=== PATIENT | female | born 2000 | race Caucasian/White ===

== ENCOUNTER 2024-09-08 16:37 | Observation (INO) | payer SELFPAY ==
[2024-09-08] VITALS (27 sets, daily range): BP systolic 103–127; BP diastolic 55–75; PULSE 53–136; BMI 33.3
--- NOTE | 2024-09-08 08:47 | US_ITS ---
WS: [id number] ULTRASOUND OB FOCUSED HISTORY: bleeding COMPARISON: None available. Single intrauterine gestation is present in breech presentation. Cervix is not completely identified. Only a small portion of the cervix is identified. Cervix is being obscured by the fetus deep within the pelvis. heart rate at 145 BPM. Several scattered pockets of amniotic fluid are identified. Largest single pocket is 4.0 cm in depth. Placenta is posterior and fundal with no abruption or previa. Placenta is grade 2. US/US OB limited [id number] IMPRESSION: 1. Incomplete evaluation of the cervix. Cervix is obscured by body parts . If further evaluation of the cervix is necessary transvaginal ultrasound shou ld be obtained. 2. Normal cardiac activity. 3. Breech. 4. Normal amniotic fluid. 5. Posterior grade 2 placenta with no abruption.
[2024-09-08 09:05] LABS: Basophils % 0.2 %; Eosinophils % 0.3 %; Hematocrit 37.7 % (36-47); Lymphocytes # 1.6 10^3/uL (0.8-4.8); Lymphocytes % 13.8 %; Mean Corpuscular HGB Conc 31.8 g/dL (30-55); Mean Corpuscular Hemoglobin 26.4 pg (27-33); Mean Platelet Volume 10.9 fL (7.4-10.4); Monocytes # 0.6 10^3/uL (0.2-0.9); Neutrophils # 9.18 10^3/uL (1.8-7.7); Neutrophils % 80.4 %; Nucleated Red Blood Cells % 0 %; Platelet Count 197 10^3/cmm (157-399); Red Blood Count 4.54 10^6/uL (3.85-5.65); Red Cell Distribution Width 14.1 % (12.1-15.1)
[2024-09-08] MEDS: dextrose 5%-lactated ringers 1,000 ML 125 ML IV (11:17)
--- NOTE | 2024-09-08 12:28 | PM.HP ---
Providers/Chief Complaint Primary Care Provider: Breana Chavis MD Chief Complaint: bleeding History of Present Illness Mandy Malin is a 24 year old female at 36 weeks 5 days gestation with an LUIS of 10/01/2022 who presented to labor and delivery this morning complaining of vaginal bleeding. She denies any sexual intercourse for the past 5 days. She states that she woke up to go to the restroom and had a gush of blood down her legs. She called for her spouse to take her to the hospital and she continued to bleed a bit while she was placing a maxi pad on. When she arrived to labor and delivery the maxi pad was saturated. The patient denied any regular contractions but her spouse stated that last evening she was feeling some regular contractions. She has had good movement and no loss of fluid that she knows of. The bleeding has been bright red. She does feel some occasional cramping in her back. Review of Systems Narrative: Positive vaginal bleeding, positive movement, negative loss of fluid, negative for regular contractions Medications/Allergies Home Medications ?Medication ?Instructions ?Recorded ?Confirmed ?Last Taken ?Type prenat.vits,danilo,mwb-lelk-lalrs 1 tab PO DAILY 09/08/24 09/08/24 Unknown History Allergies Allergy/AdvReac Type Severity Reaction Status Date / Time No Known Allergies Allergy Verified 09/08/24 11:04 Additional Medication Information The patient was a late OB transfer from out of [facility]. [facility] Acute Female Reproductive History: : 2 Para: 1 Vitals/I&O/Wt Last Vital Signs Pulse 74 09/08/24 12:22 BP 109/67 09/08/24 12:22 Weight last 48 hrs Weight 102.512 kg Physical Exam Narrative: Alert and oriented, sitting up in bed, heart regular rate and rhythm, lungs clear to auscultation bilaterally, abdomen is gravid, soft and nontender, SVE 1 thick and high with moderate bright red blood on the chucks. Data 09/08/24 08:55 Other Labs: labs: Blood type B+, antibody negative, hepatitis B nonreactive, hepatitis C nonreactive, HIV nonreactive, rubella immune, GC chlamydia negative, RPR nonreactive, UDS negative, she passed her glucose tolerance test A&P Assessment and plan (1) Vaginal bleeding during , antepartum: The patient had most of her bleeding upon initial presentation. Since then it has tapered off significantly. Nursing is going to be weighing the chucks so we can get an idea of how much blood loss she has had. Ultrasound was performed with no indication of abruption and the placenta is fundal in location. heart tones have been reassuring. She has been typed and crossed for 2 units of blood on hold. She has been consented for possible emergent section. She has 2 lines of IV access in place and is on maintenance fluids. We will keep her on ice chips and sips for the time being. Continue to monitor. If she has any more significant vaginal bleeding we will likely proceed with section. (2) Breech presentation of fetus: Patient is aware and has been consented for section. (3) with 36 completed weeks gestation: PDMP PDMP Reviewed: Not Reviewed Attestations Medical Necessity Statement*: Significant vaginal bleeding and viable Coding Level of Care Code Acute Code for Chg Fwd Diagnoses Vaginal bleeding during , antepartum O46.90 Breech presentation of fetus O32.1XX0 with 36 completed weeks gestation Z3A.36
[2024-09-08] MEDS: acetaminophen 325 mg Tablet 650 MG PO (20:27)
[2024-09-09] MEDS: dextrose 5%-lactated ringers 1,000 ML 125 ML IV (00:44)
[2024-09-09 04:35] VITALS: BP 117/66; PULSE 67
[2024-09-09 04:49] VITALS: BP 112/64; PULSE 77
--- NOTE | 2024-09-09 08:43 | PC.NURSE ---
IVs flushed. pt refusing continuous fluids at this time.
[2024-09-09 09:28] VITALS: BP 118/64; PULSE 78; RESP 15; TEMP 36.1
--- NOTE | 2024-09-09 12:20 | PM.DCS ---
Discharge Providers Date of Admission: 09/08/24 16:37 Date of Discharge: September 09, 2024 Attending Provider at Admission: Breana Chavis MD Attending Provider at Discharge: Breana Chavis MD Primary Care Provider: Breana Chavis MD Diagnoses at Discharge Discharge Diagnosis (1) Vaginal bleeding during , antepartum: Details from hospital stay: Resolved spontaneously. I suspect it was secondary to minimal cervical dilation the cervix was 1 cm and thick. Patient should have nothing per vagina until further notice. She should report immediately back to the hospital for any bright red blood. If she were to have any more significant vaginal bleeding we would likely proceed with primary section if the is still in breech presentation. Status: Acute (2) Breech presentation of fetus: Details from hospital stay: Patient is being scheduled for primary section likely September 24 pending authorization from anesthesia. Obviously if the should turn Vertex then patient may proceed with vaginal delivery. Status: Acute (3) with 36 completed weeks gestation: Status: Acute Reason for Visit Reason for Visit: bleeding Hospital Course Hospital Course This is a 24-year-old G2, P1 at 36 weeks 6 days gestation who presented to labor and delivery yesterday morning complaining of vaginal bleeding. Ultrasound did not reveal any obvious source for the bleeding and the placenta was located fundally. heart tones have been reassuring. The patient was admitted for observation and kept overnight. The bleeding resolved spontaneously and by weight came out to be approximately 130 mL since admission, the majority occurring before noon. She had a scant amount of bright red blood overnight and a scant amount of dark red blood this morning. She has been up ambulating and reports good movement with rare contractions. The patient is being discharged home in good condition on pelvic rest. Physical Exam Narrative: Alert and oriented, sitting up in bed eating lunch, heart regular rate and rhythm, lungs clear to auscultation bilaterally, abdomen is soft, gravid, nontender, extremities have 1+ edema but no calf tenderness Discharge Data Studies Completed and Pending Completed Studies During Hospitalization Category Date Time Status US OB limited [id number] Stat Ultrasound 09/08/24 08:47 Completed Pending at discharge Category Date Time Status Leukocyte Reduced RBC Routine Lab 09/08/24 08:55 Results Type and Screen Stat Lab 09/08/24 08:55 Results Radiology Impressions Obstetrics Ultrasound 09/08/24 08:47 IMPRESSION: 1. Incomplete evaluation of the cervix. Cervix is obscured by body parts. If further evaluation of the cervix is necessary transvaginal ultrasound should be obtained. 2. Normal cardiac activity. 3. Breech. 4. Normal amniotic fluid. 5. Posterior grade 2 placenta with no abruption. Laboratory Results WBC 11.40 10^3/uL (3.29-11.43) 09/08/24 08:55 RBC 4.54 10^6/uL (3.85-5.65) 09/08/24 08:55 Hgb 12.00 g/dL (11.27-16.99) 09/08/24 08:55 Hct 37.7 % (36-47) 09/08/24 08:55 MCV 83.0 fl (85-98) L 09/08/24 08:55 MCH 26.4 pg (27-33) L 09/08/24 08:55 MCHC 31.8 g/dL (30-55) 09/08/24 08:55 RDW 14.1 % (12.1-15.1) 09/08/24 08:55 Plt Count 197 10^3/cmm (157-399) 09/08/24 08:55 MPV 10.9 fL (7.4-10.4) H 09/08/24 08:55 Neut % (Auto) 80.4 % 09/08/24 08:55 Lymph % (Auto) 13.8 % 09/08/24 08:55 [place] % (Auto) 5.0 % 09/08/24 08:55 Eos % (Auto) 0.3 % 09/08/24 08:55 Baso % (Auto) 0.2 % 09/08/24 08:55 Neut # (Auto) 9.18 10^3/uL (1.8-7.7) H 09/08/24 08:55 Lymph # (Auto) 1.6 10^3/uL (0.8-4.8) 09/08/24 08:55 [place] # (Auto) 0.6 10^3/uL (0.2-0.9) 09/08/24 08:55 Eos # (Auto) 0.0 10^3/uL (0.0-0.8) 09/08/24 08:55 Baso # (Auto) 0.0 10^3/uL (0.0-0.1) 09/08/24 08:55 Nucleated RBC % (auto) 0 % 09/08/24 08:55 Nucleated RBCs # 0.0 /100WBC 09/08/24 08:55 Blood Type B Positive 09/08/24 08:55 Rho(D) Type Rh positive 09/08/24 08:55 Antibody Screen Negative 09/08/24 08:55 Crossmatch See Detail 09/08/24 08:55 Vitals Last Vital Signs Temp 97.0 F L 09/09/24 09:28 Pulse 78 09/09/24 09:28 Resp 15 09/09/24 09:28 BP 118/64 09/09/24 09:28 Discharge Plan Discharge Patient Disposition: Home Condition: Stable Prescriptions: Continued prenat.vits,danilo,[id number] Tablet 1 tab PO DAILY Discharge Orders: Discharge Order (Routine); Ordered 09/09/24 Ordered By: Breana Chavis Referrals: Breana Chavis MD [Primary Care Provider] - 1 week Discharge Diet: Usual diet Discharge Activity: Limit activity as instructed Patient Instructions: Opioid Safety Activity Restrictions/Additional Instructions: Nothing per vagina until further notice. Discharge Attestations Time Spent in Discharge Care*: less than 30 min Quality Metrics Clinical Quality Measures [ No reported AMI, CVA or VTE this stay] Coding Level of Care Code Acute Code for Chg Fwd Diagnoses Vaginal bleeding during , antepartum O46.90 Breech presentation of fetus O32.1XX0 with 36 completed weeks gestation Z3A.36
[2024-09-09 13:26] VITALS: BP 114/61; PULSE 78; TEMP 36.2
[2024-09-09 13:28] VITALS: BP 114/61; PULSE 78; RESP 16; TEMP 36.2; O2SAT 99
== END 2024-09-09 13:28 | disposition home or self-care (01) ==
PROVIDERS: Admitting Provider Family Medicine; PCP Family Medicine; Visit Provider Family Medicine
DX: O46.93 Antepartum hemorrhage, unspecified, third trimester (principal); O32.1XX0 Maternal care for breech presentation, not applicable or unspecified; Z3A.36 36 weeks gestation of pregnancy
CPT/HCPCS: 36415; 59025; 76815; 85025; 86850; 86900; 86920; 99211; G0378; J7121

== ENCOUNTER 2024-09-12 19:51 | Outpatient (CLI) | payer SELFPAY ==
[2024-09-12 20:01] VITALS: BMI 33.6
[2024-09-12 20:09] VITALS: BP 112/64; PULSE 91
[2024-09-12 20:12] VITALS: RESP 16; TEMP 36.5
[2024-09-12 20:25] VITALS: BP 104/58; PULSE 79
[2024-09-12 20:40] VITALS: BP 108/65; PULSE 88
[2024-09-12 21:03] VITALS: BP 108/65; PULSE 88; RESP 16; O2SAT 98
== END 2024-09-12 21:06 | disposition home or self-care (01) ==
LOC: OPOB 19:54 → OBGYN 19:56
PROVIDERS: PCP Family Medicine; Visit Provider Family Medicine
DX: O20.9 Hemorrhage in early pregnancy, unspecified (principal); Z3A.00 Weeks of gestation of pregnancy not specified
CPT/HCPCS: 59025; 99211

== ENCOUNTER 2024-09-24 05:10 | Inpatient (IN) | payer SELFPAY ==
--- NOTE | 2024-09-18 10:32 | ANES.PREANE2 ---
Pre-Anesthetic Assessment Height/Weight: Height 5 ft 9 in Preop Diagnosis: Planned Operation Date: 09/24/24 07:20 Proposed Procedures p Section(Not Applicable) - Breana Chavis MD Was Beta Arleth taken within 24 hours: N/A Was Clonidine taken within 24 hours: N/A Social No alcohol and No tobacco Exam alert, oriented x 3, clear to auscultation bilaterally and regular rate & rhythm Airway Submandibular: within normal limits Cervical ROM: within normal limits Mallampati: Class II Dentition: full Anesthetic Plan ASA status: 2 Anesthesia: General Other: No prior issues with anesthesia G2, P1 with planned Plan for n.p.o. at midnight prior to procedure Will obtain labs morning of procedure Denies any cardiac or pulmonary issues Plan for routine with spinal Medications/Allergies Home Medications ?Medication ?Instructions ?Recorded ?Confirmed ?Last Taken ?Type prenat.vits,danilo,gdc-cets-zkpry 1 tab PO DAILY 09/08/24 09/12/24 09/12/24 History Allergies Allergy/AdvReac Type Severity Reaction Status Date / Time No Known Allergies Allergy Verified 09/12/24 20:02 [facility] Anesthesia Female Reproductive History Para: 1 Data Anesthesia Cardiac Studies: No Data to Display
[2024-09-24] VITALS (80 sets, daily range): BP systolic 96–121; BP diastolic 46–72; PULSE 52–91; RESP 15–18; TEMP 35.9–36.7; O2SAT 97–100; BMI 34.2
--- OUTSIDE RECORDS SUMMARY | 2024-09-24 05:13 | XMS_ITS | Data Portability ---
Author Organization [facility] Thai Le [facility] Osvaldo, JUAN [facility] Address [address] [place] [address] Assessment No assessment recorded. Plan of Treatment Reminders Order Date Submit Date Provider Last Modified By Organization Details Last Modified Time Details Appointments None recorded. Lab streptococc us group B, culture, unspecified specimen 2024 025 [place] D[place] [facility], [address] [place] [address] [address] [place], [address], 06:26:31 Referral None recorded. Procedures None recorded. Surgeries None recorded. Imaging None recorded. Medication Orders None recorded. Patient TargetsNo targets recorded. Patient InstructionsNo instructions recorded. Reason for Referral None Reported. Results Created Date Observation Date Name Description Value Unit Range Abnormal Flag Note LastModifiedBy Organization Detail LastModifiedTime 09/03/1909/06/2024 STREP TOCOC CUS, GROUP B CULTU RE streptococcu s, group B culture SEE NOTE STREP TOCOC CUS, GROUP B CULTU RE Micro Numbe r: [id number] Test Statu s: Final Speci men Sourc e: Vagin al/an orect al Speci men Quali ty: Adequ ate Resul t: No group B Strep tococ cus isola lior Note per CDC guide lines optim al recov sonny is achie juliana by swabb ing both the lower vagin a and rectu m (thro ugh the anal sphin cter) . Not Available [employer] [facility] [address], [place], [address], 09/06/2024 06:26:30 09/08/1909/08/2024 US, obste tric, 2nd trime ster No observ ation record ed. [email or web address] [facility] Neurology [address] [place], [address], 09/08/2024 11:04:13 09/08/19 25 09/08/2024 US, obste tric No observ ation record ed. [email or web address] [facility] [address] [place], [address], 09/08/2024 11:03:40 09/09/1909/08/2024 US, obste tric, limit ed No observ ation record ed. [email or web address] Not Available 09/11 16:31:55 Result Notes None recorded. Problems Name Problem SNOMED Code Status Onset Date Resolution Date Notes Provider Name and Address Organization Details Recorded Time 04742538 Active [facility] JOSE ANTONIO NGUYEN [facility] 15:25:30 Problem Notes None recorded. Procedures Surgical History None recorded. Imaging Results Imaging Date Name Status LastModified by Organiz ation Details LastModified Time 09/08/2024 US, obstetric, 2nd trimester completed [email or web address] [place] [address] Neurology [address] [place], [address], 09/08/2024 11:04:13 09/08/2024 US, obstetric completed [email or web address] [place] [address] [address] [place], [address], 09/08/2024 11:03:40 09/08/2024 US, obstetric, limited completed [email or web address] Information not available 09/11/2024 16:31:55 Procedure Notes None recorded. Medical Equipment None Reported. Allergies No known drug allergies Medications Not known to be on any medication Vitals Date Recorded Body weight Body mass index (BMI) Body height Body temperature Oxygen saturation Oxygen saturation in Arterial blood by Pulse oximetry Heart rate Systolic blood pressure Diastolic blood pressure Provider Name and Address Organization Details Last Updated DateTime 5 019524. 51 g 33.8 kg/m2 172.72 cm 97.1 [degF] 99 % 99 % 71 /min 114 mm[Hg] 70 mm[Hg] JOSE ANTONIO NGUYEN [facility] 15:24:01 Date Recorded Body height Body mass index (BMI) Body weight Body temperature Oxygen saturation Oxygen saturation in Arterial blood by Pulse oximetry Heart rate Systolic blood pressure Diastolic blood pressure Provider Name and Address Organization Details Last Updated DateTime 172.72 cm 34.2 kg/m2 040864. 28 g 98.2 [degF] 99 % 99 % 93 /min 100 mm[Hg] 70 mm[Hg] FARHAN REDD BELTRAN [facility] 10:59:11 Date Recorded Body height Body mass index (BMI) Body weight Body temperature Oxygen saturation Oxygen saturation in Arterial blood by Pulse oximetry Heart rate Systolic blood pressure Diastolic blood pressure Provider Name and Address Organization Details Last Updated DateTime 172.72 cm 34.5 kg/m2 469009. 47 g 98.6 [degF] 99 % 99 % 68 /min 115 mm[Hg] 80 mm[Hg] FARHAN REDD DEVIN [facility] 10:26:39 Social History Question Answer Notes LastModified by Organizat ion Details LastModified Time Tobacco Smoking Status Never Smoker JOSE ANTONIO NGUYEN [facility] 08/20/2024 15:24:58 What Is Your Level Of Alcohol Consumption? None Information not available 08/20/2024 Do You Use Any Illicit Or Recreational Drugs? No [email or web address] Information not available 08/20/2024 Sex: Unknown Functional Status None recorded. Mental Status None recorded. Family History Relationship Description Onset Age of this Age Resolved Age Notes LastModified by Organization Details LastModified Time Father No current problems or disability [email or web address] Not available 08/20 15:24:52 Mother No current problems or disability [email or web address] Not available 08/20 15:24:52 Medical History Condition Response Coronary Artery Disease N Gout N Other N Blood Diseases N Kidney Stones N Hyperthyroidism N Blood Transfusion N Breast Cancer N Depression N Hypothyroidism N Lung Disease N COPD N Defects or Inherited Disease N Developmental or Behavioral Disorders N Breast Problem N Difficulty Swallowing N Anesthesia Complications N Meniere's disease N Anxiety Disorder N Muscle, Joint, or Bone Problems N Vision or Eye Problems N Arthritis N Polyps N Infertility N Cancer N Varicosities N Stroke N Endometriosis N Bladder or Kidney Problems N High Cholesterol N Liver Disease N Fibromyalgia N Headaches N Kidney Disease N Allergies/Hayfever N Heart Problems N Ear or Hearing Problems N Hospitalizations N Thyroid Problems N GI Problems N ADD/ADHD N Skin Problems N Eating Disorder N Anemia N Constipation N Mental Illness N Ovarian Cancer N Diabetes N Bedwetting N Seizures/Epilepsy N Tuberculosis N Eczema N Diverticulitis N Abuse/Domestic Violence N Asthma N Reflux/GERD N Hepatitis N Heart Disease N Pulmonary Embolism N Pre-Eclampsia N Hypertension N Chronic Ear Infections N Osteoporosis N Chicken Pox N Autism Spectrum Disorder (ASD) N Thrombophilias N Gynecological History Statement/Question Response Abnormal Pap N Date of Last Pap Smear Obstetrics History GPAL:G 2 P 1 0 0 1 Type Value Full Term 1 Living 1 Total 2 Past Encounters Encounter ID Performer Location Encounter Start Date Encounter Closed Date Diagnosis/Indication Diagnosis SNOMED-CT Code Diagnosis ICD10 Code Diagnosis Note [id number] Breana Chavis MD [facility] ([facility]) [address] [place] [phone] 5 08/20/2024 15:17:01 08/20/2024 16:05:42 Gestation period, 34 weeks 88562107 Z3A.34 Normal pre gnancy in multigravida 1845359379 91177 Z34.83 Patient ne w to provider [id number] 56961 Z76.89 pt moved her from out of [facility], Signed a records request form to obtain her records. 08/20/2024 [id number] Breana Chavis MD [facility] ([facility]) [address] [place] [phone] 5 09/03/2024 10:45:52 09/03/2024 11:42:43 Gestation period, 36 weeks 30415399 Z3A.36 Normal pre gnancy in multigravida 4871284598 06993 Z34.83 [id number] Breana Chavis MD [facility] ([facility]) [address] [place] [address] [phone] 5 09/18/2024 10:16:35 09/18/2024 12:01:17 Gestation period, 38 weeks 57476683 Z3A.38 Normal pre gnancy in multigravida 9171464844 36774 Z34.83 Breech presentation 6096 002 O32.1XX9 c/s preop instructio ns given to pt Health Concerns Section Related Observation LastModified by Organization Detai ls LastModified Time None Recorded Concern Status LastModified by Organization Details LastModified Time None Recorded Advance Directives Directive None Recorded Payers Encounter Date Sequence Insurance Name Policy Number Policy Melton Covered Member ID Melton Member ID Guarantor Name 08/20/2024 1 *SELF PAY* Arvin Malni 09/03/2024 1 *SELF PAY* Arvin Malin 09/18/2024 1 *SELF PAY* Arvin Malin Notes Date Note Type Note Provider Name and Address Organization Details Recorded Time 08/20/2024 text/html ob routineRep orted bypatient.Associated Symptoms:no abdominal pain; no cramping; no contractions; normal movement; no bleeding; no dysuria; no nausea; no emesis; no constipation; no headache; no dizziness No hx of GDM, pre-eclampsia per ptunk blood type, does not remember getting the rhogam last [email or web address] week ultrasound was WNL per ptadvised next visit will be her GBS test. Breana Chavis MD [address] [place] [address], [phone], [facility] 08/20/2024 15:55:49 09/03/2024 text/html ob routineRep orted bypatient.Associated Symptoms:normal movement; no bleeding; no dysuria; no nausea; no emesis; no constipation; no edema; no dizziness;abdominal pain;contractions;hea dache Breana Chavis MD [address] [place] [address], [phone], [facility] 09/03/2024 11:18:48 09/18/2024 text/html ob routineRep orted bypatient.Associated Symptoms:normal movement; no bleeding; no dysuria; no nausea; no emesis; no edema; no headache; no dizziness;abdominal pain;cramping;contrac tions Breana Chavis MD [address] [place], [address], [facility], [facility] 09/18/2024 10:55:23 OBGyn Episode Ob Episode Information Episode Created Date Number of Fetuses Patient Bloodtype Patient rh Status Prepregnancy Weight lbs Domestic Partner Domestic Partner Phone Father Name High School Librarian Status 08/20/19 25 1 CLOSED Fetus Data First Name Last Name Admitted to NICU Weight (g) Sex Living Outcome Pediatric Complications Fetus ID Race Codes Race Delivery Type 3600.15 9704 M [id number] VAGINAL Andi Calculation Initial Andi Date Initial Exam Date Initial Exam Provider Initial Ultrasound Date Last Menstrual Period Date Ultra Sound Weeks Gestation 0 Eighteen To Twenty Week Andi Update Ultra Sound Date Fundal Height At Umbil Quickening Date Ultra Sound Latest Weeks Gestation Final Andi Confirmed By Final Andi Confirmed Date Final Andi Date Ultra Sound Latest Days Gestation 0 0 Menstrual History Last Menstrual Date Menses Monthly On Bcp Conception Prior Menses Frequency Hcg Plus Date Menarche Onset Age Delivery Information Delivery Date Delivery Type Labor Anesthesia Weeks Gestation Incision Type Labor Labor Length Hrs Delivered By Post Complications Tubal Sterilization Discharge Date Comments 3 Regional-Ep idural Out of state, no complicat ions Discharge Information Feeding Method Contraceptive Method Maternal HG B and HCT Levels Ob Episode Information Episode Created Date Number of Fetuses Patient Bloodtype Patient rh Status Prepregnancy Weight lbs Domestic Partner Domestic Partner Phone Father Name High School Librarian Status 08/20/19 25 1 OPEN Fetus Data First Name Last Name Admitted to NICU Weight (g) Sex Living Outcome Pediatric Complications Fetus ID Race Codes Race Delivery Type [id number] Andi Calculation Initial Andi Date Initial Exam Date Initial Exam Provider Initial Ultrasound Date Last Menstrual Period Date Ultra Sound Weeks Gestation 10/01/2024 08/20/2024 0 Eighteen To Twenty Week Andi Update Ultra Sound Date Fundal Height At Umbil Quickening Date Ultra Sound Latest Weeks Gestation Final Andi Confirmed By Final Andi Confirmed Date Final Andi Date Ultra Sound Latest Days Gestation 0 0 Pre-maxim Flowsheet Flowsheet Date 08/20/2024 Woodall Score Blood Edema Fundus Height Fundus Units Glucose Ketones Leukocytes Nitrite Labor Signs Protein Cervic Dilation Cervic Effacement Cervic Station 35 cm none trace Negative trace Type Weight in lbs Pre/Post Dialysis Refused With clothes 222.2926067699 BP Diastolic BP Location Tested BP Systolic BP Type 70 L arm 114 sitting Fetus Heart Rate Present A 140 Fetus Movement A Yes Comments kick counts reviewed. Baby g Chavo berry. No bc after baby is born.GBS next visit. had Tdap, needs RSV. Flowsheet Date 09/03/2024 Woodall Score Blood Edema Fundus Height Fundus Units Glucose Ketones Leukocytes Nitrite Labor Signs Protein Cervic Dilation Cervic Effacement Cervic Station 36 cm none 2+ trace Type Weight in lbs Pre/Post Dialysis Refused Weight 225.880667031564 BP Diastolic BP Location Tested BP Systolic BP Type 70 100 Fetus Heart Rate Present A 145 Fetus Movement A Yes Comments GBS and cytotec forms signed today. Flowsheet Date 09/18/2024 Woodall Score Blood Edema Fundus Height Fundus Units Glucose Ketones Leukocytes Nitrite Labor Signs Protein Cervic Dilation Cervic Effacement Cervic Station 36 cm none trace trace Type Weight in lbs Pre/Post Dialysis Refused Weight 227.8277466893 BP Diastolic BP Location Tested BP Systolic BP Type 80 115 Fetus Heart Rate Present A 150 Fetus Movement A Yes Comments bleeding episode was in L&D overnight. breech. scheduled for c/s Menstrual History Last Menstrual Date Menses Monthly On Bcp Conception Prior Menses Frequency Hcg Plus Date Menarche Onset Age Genetic Screening And Infection History Question Response Note Patient's Age Will Be 35 Yea rs Or Older At Estimated Date of Delivery false Thalassemia (Wolof, Chinese, Mediterranean, Or Background): MCV < 80 false Neural Tube Defect (Meningomyelocele, Spina Bifi da, Or Anencephaly) false Congenital Heart Defect false Down Syndrome false Jayden-Sachs (eg, Buddhist, Cajun, Urdu-Cotopaxi) f alse Fabiana Disease false Sickle Cell Disease Or Trait () false Hemophilia Or Other Blood Disorders false Muscular Dystrophy false Cystic Fibrosis false Braz[place]'s Chorea false Intellectual Disability/Autism false If Yes, Was Person Tested For Fragile X? false Other Inherited Genetic Or Chromosomal Disorder false Maternal Metabolic Disorder (eg, Type 1 Diabetes , PKU) false Patient Or Baby's Father Had A Child With Defects Not Listed Above false Recurrent Loss, Or A Stillbirth false Medications (including Suppl ements, Vitamins, Herbs, OTC Drugs), Illicit/Recreational Drugs, Alcohol true If Yes, Agent(s) And Strength/Dosage false Any Other Genetic History false Live With Someone With TB Or Exposed To TB false Patient Or Partner Has History Of Genital Herpes false Rash Or Viral Illness Since Last Menstrual Perio d false History Of STD, Gonorrhea, Chlamydia, HPV, Syphi lis false Other Infection History false History of HIV false History of Hepatitis false Prior GBS-infected child false Hemoglobinopathy Or Carrier false Other Structural Defect false Recent Travel History Outside of Country false Mental Retardation/Autism false Delivery Information Delivery Date Delivery Type Labor Anesthesia Weeks Gestation Incision Type Labor Labor Length Hrs Delivered By Post Complications Tubal Sterilization Discharge Date Comments Discharge Information Feeding Method Contraceptive Method Maternal HG B and HCT Levels
--- OUTSIDE RECORDS SUMMARY | 2024-09-24 05:13 | XMS_ITS | Continuity of Care Document ---
Author Organization [place] - [facility] Osvaldo, Joel, [facility] ([facility]) Address [address] [place] [address] Assessment No assessment recorded. Plan of Treatment Reminders Order Date Submit Date Provider Last Modified By Organization Details Last Modified Time Details Appointments None record ed. Lab None record ed. Referral None record ed. Procedures None record ed. Surgeries None record ed. Imaging None record ed. Medication Orders None record ed. Patient TargetsNo targets recorded. Patient InstructionsNo instructions recorded. Reason for Referral None Reported. Results Created Date Observation Date Name Description Value Unit Range Abnormal Flag Note LastModifiedBy Organization Detail LastModifiedTime 09/08/19 25 09/08/2024 US, obste tric, 2nd trime ster No observ ation record ed. [email or web address] [facility] Neurology [address] [place], [address], 09/08/2024 11:04:13 09/08/19 25 09/08/2024 US, obste tric No observ ation record ed. [email or web address] [facility] [address] [place], [address], 09/08/2024 11:03:40 09/09/19 25 09/08/2024 US, obste tric, limit ed No observ ation record ed. Not Available 09/11 16:31:55 Result Notes None recorded. Problems Name Problem SNOMED Code Status Onset Date Resolution Date Notes Provider Name and Address Organization Details Recorded Time [id number] Active 025 JOSE ANTONIO hammonds [place] - [facility], Joel 15:25:30 Problem Notes None recorded. Medical Equipment None Reported. Allergies No known drug allergies Medications Not known to be on any medication Vitals Date Recorded Body height Body mass index (BMI) Body weight Body temperature Oxygen saturation Oxygen saturation in Arterial blood by Pulse oximetry Heart rate Systolic blood pressure Diastolic blood pressure Provider Name and Address Organization Details Last Updated DateTime 5 172.72 cm 34.5 kg/m2 995981. 47 g 98.6 [degF] 99 % 99 % 68 /min 115 mm[Hg] 80 mm[Hg] FARHAN BELTRAN [facility] 10:26:39 Social History Question Answer Notes LastModified by Organizat ion Details LastModified Time Tobacco Smoking Status Never Smoker [facility] 08/20/2024 15:24:58 What Is Your Level Of Alcohol Consumption? None [email or web address] Information not available 08/20/2024 Do You Use Any Illicit Or Recreational Drugs? No [email or web address] Information not available 08/20/2024 Sex: Unknown Functional Status None recorded. Mental Status None recorded. Family History Relationship Description Onset Age of this Age Resolved Age Notes LastModified by Organization Details LastModified Time Father No current problems or disability Not available 08/20 15:24:52 Mother No current problems or disability [email or web address] Not available 08/20 15:24:52 Medical History Condition Response Coronary Artery Disease N Other N Gout N Kidney Stones N Blood Diseases N Hyperthyroidism N Breast Cancer N Blood Transfusion N Depression N COPD N Lung Disease N Hypothyroidism N Defects or Inherited Disease N Developmental [...] SNOMED-CT Code Diagnosis ICD10 Code Diagnosis Note [id number] Breana Chavis MD [facility] ([facility]) [address] [place] [phone] 5 08/20/2024 15:17:01 08/20/2024 16:05:42 Gestation period, 34 weeks 37511574 Z3A.34 Normal pre gnancy in multigravida 9997058571 13129 Z34.83 Patient ne w to provider [id number] 56786 Z76.89 pt moved her from out of [facility], Signed a records request form to obtain her records. 08/20/2024 [id number] Breana Chavis MD [facility] ([facility]) [address] [place] [phone] 5 09/03/2024 10:45:52 09/03/2024 11:42:43 Gestation period, 36 weeks 82351210 Z3A.36 Normal pre gnancy in multigravida 8768685479 28836 Z34.83 [id number] Breana Chavsi MD [facility]) [address] [place] [address] [phone] 5 09/18/2024 10:16:35 09/18/2024 12:01:17 Gestation period, 38 weeks 44458382 Z3A.38 Normal pre gnancy in multigravida 1324932171 94952 Z34.83 Breech presentation 6096 002 O32.1XX9 c/s preop instructio ns given to pt Health Concerns Section Related Observation LastModified by Organization Detai ls LastModified Time None Recorded Concern Status LastModified by Organization Details LastModified Time None Recorded Payers Encounter Date Sequence Insurance Name Policy Number Policy Melton Covered Member ID Melton Member ID Guarantor Name 09/18/2024 1 *SELF PAY* Arvin Malin Notes Date Note Type Note Provider Name and Address Organization Details Recorded Time 09/18/2024 text/html jr ob routineRep orted bypatient.Associated Symptoms:normal movement; no bleeding; no dysuria; no nausea; no emesis; no edema; no headache; no dizziness;abdominal pain;cramping;contrac tions Breana Chavis MD [address] [place] [address], [phone], [facility] 09/18/2024 10:55:23 OBGyn Episode Ob Episode Information Episode Created Date Number of Fetuses Patient Bloodtype Patient rh Status Prepregnancy Weight lbs Domestic Partner Domestic Partner Phone Father Name Demurrage Agent Status 08/20/19 25 1 OPEN Fetus Data [...] in lbs Pre/Post Dialysis Refused With clothes 222.9355916254 BP Diastolic BP Location Tested BP Systolic BP Type 70 L arm 114 sitting Fetus Heart Rate Present A 140 Fetus Movement A Yes Comments kick counts reviewed. Baby g irl, Chavo. No bc after baby is born.GBS next visit. had Tdap, needs RSV. Flowsheet Date 09/03/2024 Woodall Score Blood Edema Fundus Height Fundus Units Glucose Ketones Leukocytes Nitrite Labor Signs Protein Cervic Dilation Cervic Effacement Cervic Station 36 cm none 2+ trace Type Weight in lbs Pre/Post Dialysis Refused Weight 225.486966658069 BP Diastolic BP Location Tested BP Systolic [...] Weight in lbs Pre/Post Dialysis Refused Weight 227.7299719658 BP Diastolic BP Location Tested BP Systolic [...] At Estimated Date of Delivery false Thalassemia (Sinhala, Belarusian, Mediterranean, Or Background): MCV < 80 false Neural Tube Defect (Meningomyelocele, Spina Bifi da, Or Anencephaly) false Congenital Heart Defect false Down Syndrome false Jayden-Sachs (eg, Scientologist, Cajun, Estonian-Bryan) f alse Fabiana Disease false Sickle Cell Disease Or Trait () false Hemophilia Or Other Blood Disorders false Muscular Dystrophy false Cystic Fibrosis false Luce's Chorea false Intellectual Disability/Autism false If Yes, [...]
--- OUTSIDE RECORDS SUMMARY | 2024-09-24 05:13 | XMS_ITS | Continuity of Care Document ---
Author Organization [place] - [facility] Osvaldo, Joel, [facility] ([facility]) Address [address] [place] [address] Assessment No assessment recorded. Plan of Treatment Reminders Order Date Submit Date Provider Last Modified By Organization Details Last Modified Time Details Appointments None recorded. Lab streptococc us group B, culture, unspecified specimen 2024 025 [facility], [address] [place] [address], [facility] [address] [place], [address], 06:26:31 Referral None recorded. Procedures None recorded. Surgeries None recorded. Imaging None recorded. Medication Orders None recorded. Patient TargetsNo targets recorded. Patient InstructionsNo instructions recorded. Reason for Referral None Reported. Results Created Date Observation Date Name Description Value Unit Range Abnormal Flag Note LastModifiedBy Organization Detail LastModifiedTime 09/08/1909/08/2024 US, obste tric, 2nd trime ster No observ ation record ed. [email or web address] [facility] [address] [place], [address], 09/08/2024 11:04:13 09/08/1909/08/2024 US, obste tric No observ ation record ed. [email or web address] [facility] [address] [place], [address], 09/08/2024 11:03:40 09/09/1909/08/2024 US, obste tric, limit ed No observ ation record ed. [email or web address] Not Available 09/11 16:31:55 Result Notes None recorded. Problems Name Problem SNOMED Code Status Onset Date Resolution Date Notes Provider Name and Address Organization Details Recorded Time [id number] Active 025 [facility] 15:25:30 Problem Notes None recorded. Medical Equipment [...] Details Last Updated DateTime 5 172.72 cm 34.2 kg/m2 576687. 28 g 98.2 [degF] 99 % 99 % 93 /min 100 mm[Hg] 70 mm[Hg] FARHAN ARGUELLOH BELTRAN [facility] 5 10:59:11 Social History Question Answer Notes LastModified by Organizat ion Details LastModified Time Tobacco Smoking Status Never Smoker [facility] 08/20/2024 15:24:58 What Is Your Level Of Alcohol Consumption? None Information not available 08/20/2024 Do You Use Any Illicit Or Recreational Drugs? No Information not available 08/20/2024 Sex: Unknown Functional Status None recorded. Mental Status None recorded. Family History Relationship Description Onset Age of this Age Resolved Age Notes LastModified by Organization Details LastModified Time Father No current problems or disability Not available 08/20 15:24:52 Mother No current problems or disability [email or web address] Not available 08/20 15:24:52 Medical History Condition Response Coronary Artery Disease N Gout N Other N Blood Diseases N Kidney Stones N Hyperthyroidism N Breast Cancer N Blood Transfusion N Hypothyroidism N Lung Disease N COPD N Depression N Developmental or Behavioral Disorders N Defects or Inherited Disease N Breast Problem N Difficulty Swallowing N [...] SNOMED-CT Code Diagnosis ICD10 Code Diagnosis Note [id number] Breana Chavis MD [facility] ([facility]) [address] [place] [address] 08/20/2024 15:17:01 08/20/2024 16:05:42 Gestation period, 34 weeks [id number] Z3A.34 Normal pre gnancy in multigravida [id number] 54402 Z34.83 Patient ne w to provider [id number] Z76.89 [place], Signed a records request form to obtain her records. 08/20/2024 [id number] Breana Chavis MD [facility] ([facility]) [address] [place] [address] 09/03/2024 10:45:52 09/03/2024 11:42:43 Gestation period, 36 weeks 27267852 Z3A.36 Normal pre gnancy in multigravida [id number] 87772 Z34.83 Health Concerns Section Related Observation LastModified by Organization Detai ls LastModified Time None Recorded Concern Status LastModified by Organization Details LastModified Time None Recorded Payers Encounter Date Sequence Insurance Name Policy Number Policy Metlon Covered Member ID Melton Member ID Guarantor Name 09/03/2024 1 *SELF PAY* Arvin Malin Notes Date Note Type Note Provider Name and Address Organization Details Recorded Time 09/03/2024 text/html jr ob routineRep orted bypatient.Associated Symptoms:normal movement; no bleeding; no dysuria; no nausea; no emesis; no constipation; no edema; no dizziness;abdominal pain;contractions;vi Chavis MD [address] [place] [address], [address], [facility] 09/03/2024 11:18:48 OBGyn Episode Ob Episode Information Episode Created Date Number of Fetuses Patient Bloodtype Patient rh Status Prepregnancy Weight lbs Domestic Partner Domestic Partner Phone Father Name Autopsy Pathologist Status 08/20/19 25 1 OPEN Fetus Data [...] Ultra Sound Latest Days Gestation 0 0 Pre- Flowsheet Flowsheet Date 08/20/2024 Woodall Score Blood Edema Fundus Height Fundus Units Glucose Ketones Leukocytes Nitrite Labor Signs Protein Cervic Dilation Cervic Effacement Cervic Station 35 cm none trace Negative trace Type Weight in lbs Pre/Post Dialysis Refused With clothes 222.9644746396 BP Diastolic BP Location Tested BP Systolic [...] Weight in lbs Pre/Post Dialysis Refused Weight 225.430167554812 BP Diastolic BP Location Tested BP Systolic [...] Weight in lbs Pre/Post Dialysis Refused Weight 227.8752271421 BP Diastolic BP Location Tested BP Systolic [...] At Estimated Date of Delivery false Thalassemia (Algerian, Vietnamese, Mediterranean, Or Background): MCV < 80 false Neural Tube Defect (Meningomyelocele, Spina Bifi da, Or Anencephaly) false Congenital Heart Defect false Down Syndrome false Jayden-Sachs (eg, Yazidi, Cajun, Thai-Maries) f alse Fabiana Disease false Sickle Cell Disease Or Trait () false Hemophilia Or Other Blood Disorders false Muscular Dystrophy false Cystic Fibrosis false [place]'s Chorea false Intellectual Disability/Autism false If Yes, [...]
[2024-09-24 05:54] LABS: Basophils % 0.2 %; Eosinophils # 0.1 10^3/uL (0.0-0.8); Eosinophils % 0.5 %; Hematocrit 35.3 % (36-47); Lymphocytes # 1.9 10^3/uL (0.8-4.8); Lymphocytes % 13.6 %; Mean Corpuscular HGB Conc 31.2 g/dL (30-55); Mean Corpuscular Hemoglobin 25.9 pg (27-33); Mean Corpuscular Volume 83.3 fl (85-98); Mean Platelet Volume 11.3 fL (7.4-10.4); Monocytes # 0.7 10^3/uL (0.2-0.9); Monocytes % 5.1 %; Neutrophils # 11.17 10^3/uL (1.8-7.7); Nucleated Red Blood Cells % 0 %; Platelet Count 230 10^3/cmm (157-399); Red Blood Count 4.24 10^6/uL (3.85-5.65); Red Cell Distribution Width 14.5 % (12.1-15.1); White Blood Count 13.97 10^3/uL (3.29-11.43)
[2024-09-24] MEDS: sodium chloride 0.9% 1,000 ML 999 ML IV (06:00)
[2024-09-24] MEDS: metoclopramide 5 mg/mL SDV 2 mL 10 MG IVP (06:53)
[2024-09-24] MEDS: citric acid-sodium citrate 30 mL UDC PO (06:57)
[2024-09-24] MEDS: famotidine 20 mg/2 mL INJ IVP (06:57)
[2024-09-24] MEDS: ceFAZolin 2,000 mg SDV 2000 MG IVP (07:10)
--- NOTE | 2024-09-24 07:41 | P.ANESASSM_ITS ---
Pre-Anesthetic Assessment Height/Weight: Height 1.75 m Weight 105.375 kg Pulse BP O2 Del Method 76 111/67 Room Air 09/24/24 06:39 09/24/24 06:39 09/24/24 06:18 Preop Diagnosis: Planned Operation Date: 09/24/24 07:20 Proposed Procedures p Section(Not Applicable) - Breana Chavis MD Was Beta Arleth taken within 24 hours: N/A Was Clonidine taken within 24 hours: N/A Last intake: Intake Last Liquid Date 09/23/24 Last Liquid Time 21:00 Last Solid Date 09/23/24 Last Solid Time 21:00 Social No alcohol and No tobacco Exam alert, oriented x 3, clear to auscultation bilaterally and regular rate & rhythm Airway Submandibular: within normal limits Cervical ROM: within normal limits Mallampati: Class II Dentition: full History/ROS No significant history except as noted and No significant complaints Pulmonary None reported CV/HEM None reported None reported Hepatic None reported GI None reported Metabolic None reported Musc/skel None reported Neuropsych None reported Anesthetic Plan ASA status: 2 Anesthesia: Anesthesia Evaluation and Regional (specify below) (SAB) Risk of > 500 ml blood loss (7ml/kg in children): No Medications/Allergies Home Medications ?Medication ?Instructions ?Recorded ?Confirmed ?Last Taken ?Type prenat.vits,danilo,abp-lesa-mraed 1 tab PO DAILY 09/08/24 09/24/24 3 Days Ago History ~09/21/24 Allergies Allergy/AdvReac Type Severity Reaction Status Date / Time No Known Allergies Allergy Verified 09/24/24 06:18 [facility] Anesthesia Female Reproductive History : 1 Para: 1 Data Anesthesia 09/24/24 05:40 Short CBC 09/24/24 Range/Units 05:40 WBC 13.97 H (3.29-11.43) 10^3/uL Hgb 11.00 L (11.27-16.99) g/dL Hct 35.3 L (36-47) % MCV 83.3 L (85-98) fl Plt Count 230 (157-399) 10^3/cmm Neut % (Auto) 80.0 % Neut # (Auto) 11.17 H (1.8-7.7) 10^3/uL Blood Bank 09/24/24 05:40 Blood Type B Positive Rho(D) Type Rh positive Antibody Screen Negative Cardiac Studies: 2 No Data to Display
--- NOTE | 2024-09-24 08:13 | PM.OPHPUD ---
Labor & Delivery H&P Update Date of Procedure: September 24, 2024 Date H&P Performed: 09/18/24 Admission Diagnosis: IUP at 39 weeks breech presentation Preop diagnosis: Primary for breech presentation Primary indication for procedure: Breech presentation Planned procedure: Operation Date: 09/24/24 07:20 Proposed Procedures p Section(Not Applicable) - Breana Chavis MD
--- NOTE | 2024-09-24 08:14 | P.OP_ITS ---
Operative Report Date of procedure: September 24, 2024 Pre-op diagnosis: Breech presentation IUP at 39 weeks 0 days gestation Post-op diagnosis: same Procedure done: Primary low-transverse section Via Pfannenstiel skin incision Specimens removed/disposition: Edward breech female infant weight 3090 g, 6 pounds 13 ounces, Apgars 9 and 9 Surgeon: Breana Chavis MD Estimated blood loss (mL): 300 IV fluids (mL): 900 Urine output (mL): 75 Complications: None Procedure: After informed consent the patient was taken to the OR where spinal anesthesia was administered. She was then prepped and draped in normal sterile fashion in dorsal supine position with a left lateral tilt. After adequate spinal anesthesia was verified, a Pfannenstiel skin incision was made and carried through to the underlying layer of fascia sharply. The fascial incision was then extended laterally using the Mayos. The fascia was grasped with Leonard clamps and the underlying rectus muscles were dissected off taking care to avoid injury to the underlying tissue. The peritoneum was entered bluntly using a hemostat and the incision site was manually stretched. The bladder blade was then inserted. The vesicouterine peritoneum was identified and entered sharply using the Metzenbaums. The bladder flap was then created digitally. Uterine incision was made in a transverse fashion in the lower uterine segment. Amniotic rupture of membranes was performed using an Allis clamp and clear fluid was noted. The was delivered in edward breech presentation without complication. She had immediate cry and bulb suction over the mouth and nares at delivery. The cord was clamped and cut and she was handed to the waiting pediatric team. The placenta was delivered using fundal pressure. A dry sponge was used to clear the uterus of clots and debris. Uterine incision was then repaired using 0 chromic in a running locked fashion. A second layer of the same suture was used in an imbricating manner. The uterus was then returned to the abdomen. Irrigation was used to clear the gutters of clots and debris. The uterine incision was inspected for hemostasis. The peritoneum was then reapproximated using 4-0 Vicryl in a running fashion. The subfascial tissue was inspected for hemostasis and the fascia was then reapproximated using 0 Vicryl in a running fashion. The subcutaneous tissue was irrigated and inspected for hemostasis. The subcutaneous tissue was then reapproximated using 4-0 Vicryl in a running fashion. The skin was reapproxi mated using 4-0 Vicryl on a Samuel needle. Steri-Strips and a pressure bandage were applied patient went to recovery in good condition. Sponge instrument and needle counts were correct.
--- NOTE | 2024-09-24 09:00 | ANE.PACU2 ---
Inpatient post-anesthesia follow up: Airway intact: Yes Vital signs: Temperature 97.6 F Pulse Rate 72 Respiratory Rate 16 Blood Pressure 115/63 Pulse Oximetry 98 Oxygen Delivery Me thod Room Air Oxygen Flow Rate Fraction of Inspir ed Oxygen Hydration adequate: Yes Nausea and vomiting: No Pain level: 1 Mental status: Baseline
[2024-09-24] MEDS: dextrose 5%-lactated ringers 1,000 ML 125 ML IV (11:21)
[2024-09-24] MEDS: ketorolac 30 mg/mL INJ IVP ×2 (13:55→20:12)
[2024-09-24] MEDS: sodium chloride 0.9% 500 ML 999 ML IV (15:41)
[2024-09-24] MEDS: docusate sodium 100 mg Capsule PO (20:12)
[2024-09-24 21:01] LABS: Hematocrit 32.6 % (36-47); Mean Corpuscular Hemoglobin 26.2 pg (27-33); Mean Corpuscular Volume 84.5 fl (85-98); Mean Platelet Volume 10.9 fL (7.4-10.4); Platelet Count 171 10^3/cmm (157-399); Red Blood Count 3.86 10^6/uL (3.85-5.65); Red Cell Distribution Width 14.6 % (12.1-15.1); White Blood Count 13.14 10^3/uL (3.29-11.43)
[2024-09-25 03:40] VITALS: BP 122/63; PULSE 74; RESP 16; TEMP 36.9
[2024-09-25] MEDS: HYDROcodone-acetaminophen 5-325 mg Tablet PO ×3 (06:27→20:06)
--- NOTE | 2024-09-25 09:12 | P.PN_ITS ---
Subjective 2 Subjective: The patient is doing well today. She has taken off the pressure bandage. She has ambulated and showered. Vitals/I&O/Wt Last Vital Signs Temp 98.4 F 09/25/24 03:40 Pulse 74 09/25/24 03:40 Resp 16 09/25/24 03:40 BP 122/63 09/25/24 03:40 Pulse Ox 99 09/24/24 12:38 O2 Del Method Room Air 09/24/24 08:45 09/24/24 09/25/24 09/25/24 22:59 06:59 14:59 Intake Total 500.00 / 3300.00 Output Total 1250 / 1700 350 / 2050 Balance -750.00 / 1600.00 -350 / 1250.00 Weight last 48 hrs Weight 105.375 kg Physical Exam 2 Narrative: Alert and oriented, sitting up in bed, heart regular rate and rhythm, lungs clear to auscultation bilaterally, abdomen is soft with appropriate postoperative tenderness, incision is clean dry and intact with Steri-Strips in place, extremities have trace edema but no calf tenderness Urinary Catheter Management: Gates: Cath Placed During This Visit: yes, but has since been removed by the nurse Reason for Continuing Indwelling Catheter: Decision to DC Catheter Urinary Catheter Date of Insertion: 09/24/24 Urinary Catheter Time of Insertion: 07:10 Date Urinary Catheter Removed: 09/24/24 Time Urinary Catheter Discontinued: 17:40 Data 09/24/24 20:58 A&P Assessment and plan (1) Status post primary low transverse section: Postop day 1 doing well. Continue routine care. Likely discharge home tomorrow if doing well PDMP PDMP Reviewed: Not Reviewed Attestations 2 Medical Necessity Statement*: Routine postoperative and care Coding Level of Care Code Acute Code for Chg Fwd Diagnoses Status post primary low transverse section Z98.891
[2024-09-25] MEDS: ibuprofen 800 mg tablet PO ×3 (09:18→21:37)
[2024-09-25] MEDS: docusate sodium 100 mg Capsule PO ×2 (09:18→18:32)
[2024-09-25] MEDS: PRENATAL VIT NO.130/IRON/FOLIC 1 EACH TABLET PO (09:18)
[2024-09-25 09:19] VITALS: BP 177/56; PULSE 80; RESP 17; TEMP 36.7; O2SAT 98
[2024-09-25 16:00] VITALS: BP 113/61; PULSE 76; RESP 16; TEMP 36.6; O2SAT 99
[2024-09-25 21:45] VITALS: BP 109/64; PULSE 84; RESP 16; TEMP 36.4; O2SAT 99
[2024-09-26] MEDS: HYDROcodone-acetaminophen 5-325 mg Tablet PO ×2 (04:38→11:27)
[2024-09-26 04:46] VITALS: BP 115/76; PULSE 80; RESP 17; TEMP 36.9; O2SAT 96
[2024-09-26 08:30] VITALS: BP 111/68; PULSE 88; RESP 16; TEMP 36.7; O2SAT 100
[2024-09-26] MEDS: ibuprofen 800 mg tablet PO (08:33)
[2024-09-26] MEDS: PRENATAL VIT NO.130/IRON/FOLIC 1 EACH TABLET PO (08:33)
[2024-09-26] MEDS: ferrous sulfate EC 325 mg Tablet PO (08:34)
[2024-09-26] MEDS: docusate sodium 100 mg Capsule PO (08:34)
--- NOTE | 2024-09-26 09:15 | P.DS_ITS ---
Discharge Providers Date of Admission: 09/24/24 05:10 Date of Discharge: September 26, 2024 Attending Provider at Admission: Breana Chavis MD Attending Provider at Discharge: Breana Chavis MD Primary Care Provider: Breana Chavis MD Reason for Visit Reason for Visit: [place] is OB Hospital Course Hospital Course This is a 24-year-old G2 now P2 who had a primary section for breech presentation. She has done well postoperatively. She is postop day #2 and is ambulating, tolerating a regular diet, has good pain control and is comfortable with discharge home. Physical Exam Narrative: Alert and oriented resting in bed, easily arousable, heart regular rate and rhythm, lungs clear to auscultation, abdomen is soft with appropriate postoperative tenderness, incision is clean dry and intact with Steri-Strips in place, extremities have trace edema but no calf tenderness Urinary Catheter Management: Gates: Cath Placed During This Visit: yes, but has since been removed by the nurse Reason for Continuing Indwelling Catheter: Decision to DC Catheter Urinary Catheter Date of Insertion: 09/24/24 Urinary Catheter Time of Insertion: 07:10 Date Urinary Catheter Removed: 09/24/24 Time Urinary Catheter Discontinued: 17:40 Discharge Data Studies Completed and Pending Laboratory Results WBC 13.14 10^3/uL (3.29-11.43) H 09/24/24 20:58 RBC 3.86 10^6/uL (3.85-5.65) 09/24/24 20:58 Hgb 10.10 g/dL (11.27-16.99) L 09/24/24 20:58 Hct 32.6 % (36-47) L 09/24/24 20:58 MCV 84.5 fl (85-98) L 09/24/24 20:58 MCH 26.2 pg (27-33) L 09/24/24 20:58 MCHC 31.0 g/dL (30-55) 09/24/24 20:58 RDW 14.6 % (12.1-15.1) 09/24/24 20:58 Plt Count 171 10^3/cmm (157-399) 09/24/24 20:58 MPV 10.9 fL (7.4-10.4) H 09/24/24 20:58 Neut % (Auto) 80.0 % 09/24/24 05:40 Lymph % (Auto) 13.6 % 09/24/24 05:40 [place] % (Auto) 5.1 % 09/24/24 05:40 Eos % (Auto) 0.5 % 09/24/24 05:40 Baso % (Auto) 0.2 % 09/24/24 05:40 Neut # (Auto) 11.17 10^3/uL (1.8-7.7) H 09/24/24 05:40 Lymph # (Auto) 1.9 10^3/uL (0.8-4.8) 09/24/24 05:40 [place] # (Auto) 0.7 10^3/uL (0.2-0.9) 09/24/24 05:40 Eos # (Auto) 0.1 10^3/uL (0.0-0.8) 09/24/24 05:40 Baso # (Auto) 0.0 10^3/uL (0.0-0.1) 09/24/24 05:40 Nucleated RBC % (auto) 0 % 09/24/24 05:40 Nucleated RBCs # 0.0 /100WBC 09/24/24 05:40 Blood Type B Positive 09/24/24 05:40 Rho(D) Type Rh positive 09/24/24 05:40 Antibody Screen Negative 09/24/24 05:40 Vitals Last Vital Signs Temp 98.5 F 09/26/24 04:46 Pulse 80 09/26/24 04:46 Resp 17 09/26/24 04:46 BP 115/76 09/26/24 04:46 Pulse Ox 96 09/26/24 04:46 O2 Del Method Room Air 09/26/24 04:46 Discharge Plan Discharge Patient Disposition: Home Condition: Stable Prescriptions: New ibuprofen 800 mg Tablet 800 mg PO TID PRN (Reason: Abdominal Discomfort) Qty: 40 0RF hydrocodone-acetaminophen 5-325 mg Tablet 1 - 2 tab PO Q4H PRN (Reason: Moderate To Severe Pain) Qty: 15 0RF docusate sodium 100 mg Capsule 100 mg PO BID Qty: 60 0RF Continued prenat.vits,danilo,qat-fenc-wgvki Tablet 1 tab PO DAILY Discharge Orders: Discharge Order (Routine); Ordered 09/26/24 Ordered By: Breana Chavis Referrals: Breana Chavis MD [Primary Care Provider] - 10/01/24 2:15 pm Discharge Diet: Usual diet Discharge Activity: Limit activity as instructed Patient Instructions: Depression (DC), Preeclampsia and Eclampsia After Delivery (GEN), Hemorrhage (DC), OB - Kar[place], OB Discharge Report, OB Food/Drug Interaction Guide, OB Care at Home, Opioid Safety, Abnormal Bleeding Activity Restrictions/Additional Instructions: No lifting greater than 10 pounds for [address] while using the narcotic pain medication. Nothing per vagina for 6 weeks. Discharge Attestations Time Spent in Discharge Care*: less than 30 min Quality Metrics Clinical Quality Measures [ No reported AMI, CVA or VTE this stay] Coding Level of Care Code Acute Code for Chg Fwd
[2024-09-26 11:30] VITALS: BP 119/79; PULSE 84; RESP 18; TEMP 36.5
== END 2024-09-26 12:15 | disposition home or self-care (01) | DRG 788 ==
PROVIDERS: Admitting Provider Family Medicine; PCP Family Medicine; Visit Provider Family Medicine
PROC: 10D00Z1 Extraction of Products of Conception, Low, Open Approach (ICD-10-PCS; CPT 59514; principal; 2024-09-24 07:00)
DX: O32.1XX0 Maternal care for breech presentation, not applicable or unspecified (principal); Z3A.39 39 weeks gestation of pregnancy; Z37.0 Single live birth
CPT/HCPCS: 36415; 51702; 59025; 59409; 85025; 85027; 86850; 86900; 96374; J0690; J1885; J2274; J2405; J2765; J3010; J3490; J7030; J7040; J7121